=== PATIENT | male | born 1990 | race African-American/Black ===

== ENCOUNTER 2017-06-08 18:07 | Emergency (ER) | payer MEDICAID ==
[~2017-06-08] VITALS: Ht 193 cm; Wt 73.3 kg
[2017-06-08 18:13] VITALS: BP 132/93
[2017-06-08] MEDS ORDERED: KETOROLAC 30 MG/1 ML IM ONE (18:30)
[2017-06-08] MEDS ORDERED: METHOCARBAMOL 750 MG TABLET PO ONE (18:30)
[2017-06-08] MEDS ORDERED: KETOROLAC 30 MG/1 ML ONE (18:31)
[2017-06-08] MEDS ORDERED: METHOCARBAMOL 750 MG TABLET ONE (18:31)
== END 2017-06-08 19:39 | disposition home or self-care (01) ==
LOC: ED 19:33
DX: M54.6 Pain in thoracic spine (principal)
CPT/HCPCS: 72072; 96372; 99284; J1885

== ENCOUNTER 2017-06-12 08:31 | Emergency (ER) | payer MEDICAID, OTHER ==
[~2017-06-12] VITALS: Ht 193 cm; Wt 74.0 kg
[2017-06-12] MEDS ORDERED: DIAZEPAM 5 MG TABLET PO ONE (09:00)
[2017-06-12] MEDS ORDERED: KETOROLAC 30 MG/1 ML IM ONE (09:00)
[2017-06-12] MEDS ORDERED: KETOROLAC 30 MG/1 ML ONE (10:00)
[2017-06-12] MEDS ORDERED: DIAZEPAM 5 MG TABLET ONE (10:00)
[2017-06-12 11:26] VITALS: BP 134/88
== END 2017-06-12 11:28 | disposition home or self-care (01) ==
LOC: ED 11:10
DX: S46.812A Strain of other muscles, fascia and tendons at shoulder and upper arm level, left arm, initial encounter (principal); X58.XXXA Exposure to other specified factors, initial encounter; Y93.89 Activity, other specified; Y92.89 Other specified places as the place of occurrence of the external cause; Y99.8 Other external cause status
CPT/HCPCS: 96372; 99283; J1885

== ENCOUNTER 2017-06-19 14:29 | Emergency (ER) | payer OTHER ==
[~2017-06-19] VITALS: Ht 182.9 cm; Wt 75.0 kg
[2017-06-19 14:33] VITALS: BP 124/76
[2017-06-20] MEDS ORDERED: LAMO100T5 PO (12:32)
[2017-06-20] MEDS ORDERED: CARB200T13 PO (12:32)
== END 2017-06-19 15:50 | disposition home or self-care (01) ==
LOC: ED 15:44
DX: S46.912A Strain of unspecified muscle, fascia and tendon at shoulder and upper arm level, left arm, initial encounter (principal); X58.XXXA Exposure to other specified factors, initial encounter; Y93.89 Activity, other specified; Y92.009 Unspecified place in unspecified non-institutional (private) residence as the place of occurrence of the external cause; Y99.8 Other external cause status
CPT/HCPCS: 99281

== ENCOUNTER 2017-06-20 12:18 | Emergency (ER) | payer MEDICAID, OTHER ==
[~2017-06-20] VITALS: Ht 193 cm; Wt 74.0 kg
[2017-06-20] MEDS ORDERED: LAMO100T5 PO (12:32)
[2017-06-20] MEDS ORDERED: CARB200T13 PO (12:32)
[2017-06-20 13:15] LABS: ASPARTATE AMINO TRANSFERASE 14 U/L (15-37); BLOOD UREA NITROGEN 9 mg/dL (7-18)
[2017-06-20 13:31] LABS: HEMATOCRIT 46.6 % (39.2-51.8); HEMOGLOBIN 15.5 g/dL (13.7-18.0); WHITE BLOOD COUNT 3.7 x10^3/uL (3.4-10)
[2017-06-20 14:10] VITALS: BP 138/84
== END 2017-06-20 14:12 | disposition home or self-care (01) ==
LOC: ED 12:26
DX: G43.909 Migraine, unspecified, not intractable, without status migrainosus (principal)
CPT/HCPCS: 36415; 80053; 85025; 99284

== ENCOUNTER 2017-06-24 16:22 | Emergency (ER) | payer MEDICAID ==
[~2017-06-24] VITALS: Ht 193 cm; Wt 74.7 kg
[~2017-06-24 16:22] MED LIST: CARB200T13 PO; LAMO100T5 PO
[2017-06-24 16:24] VITALS: BP 115/73
[2017-06-24] MEDS ORDERED: METHOCARBAMOL 750 MG TABLET PO ONE (17:30)
[2017-06-24] MEDS ORDERED: KETOROLAC 30 MG/1 ML IM ONE (17:30)
== END 2017-06-24 17:47 | disposition home or self-care (01) ==
LOC: ED 17:09
DX: M62.838 Other muscle spasm (principal); F17.200 Nicotine dependence, unspecified, uncomplicated; Z88.8 Allergy status to other drugs, medicaments and biological substances
CPT/HCPCS: 99283